=== PATIENT | female | born 1960 | race Two or more races ===

== ENCOUNTER 2017-04-20 10:20 | Emergency (ER) | payer SELFPAY ==
[~2017-04-20] VITALS: Ht 157.5 cm; Wt 100.7 kg
[2017-04-20 10:34] VITALS: BP 125/82
[2017-04-20] MEDS ORDERED: HYDROcodone-ACET 5/325MG TAB PO ONE (11:00)
== END 2017-04-20 11:38 | disposition home or self-care (01) ==
LOC: ER 10:20
DX: S80.02XA Contusion of left knee, initial encounter (principal); R07.89 Other chest pain; V43.52XA Car driver injured in collision with other type car in traffic accident, initial encounter; Y93.89 Activity, other specified; Y92.89 Other specified places as the place of occurrence of the external cause; Y99.8 Other external cause status
CPT/HCPCS: 71101; 73560

== ENCOUNTER 2021-01-17 10:52 | Emergency (ER) | payer OTHER ==
[~2021-01-17] VITALS: Ht 157.5 cm; Wt 90.7 kg
[2021-01-17 11:27] LABS: Basophils # (auto) 0 10 ^3/uL (0-0.2); Hematocrit 22.3 % (36.0-46.0); Mean Corpuscular Hgb Conc. 28.5 g/dL (32.0-36.0); White Blood Cell 3.8 10^3/uL (4.4-10.8)
[2021-01-17 11:29] LABS: Basophils % (auto) 1.3 % (0.0-2.0); Eosinophils # (auto) 0 10 ^3/uL (0-0.8); Eosinophils % (auto) 1.3 % (0.0-7.0); Lymphocytes # (auto) 1.1 10 ^3/uL (0.4-5.4); Lymphocytes % (auto) 29.7 % (10.0-50.0); Mean Corpuscular Hemoglobin 15.4 pg (28.0-32.0); Mean Corpuscular Volume 54.1 fL (80.0-100.0); Monocytes # (auto) 0.3 10 ^3/uL (0-1.3); Monocytes % (auto) 7.1 % (0.0-12.0); Neutrophils # (auto) 2.3 10 ^3/uL (1.6-8.6); Neutrophils % (auto) 60.6 % (37.0-80.0); Nucleated Red Blood Cells % 0.2 %; Platelet Count (auto) 348 10^3/uL (140-450); Red Blood Cells 4.12 10^6/uL (4.0-5.20)
[2021-01-17 11:47] LABS: Albumin 3.7 g/dL (3.4-5.0); Anion Gap 8 (5-15); Blood Urea Nitrogen 10 mg/dL (7-18); Calcium 8.4 mg/dL (8.5-10.1); Carbon Dioxide 22 mmol/L (21-32); Chloride 110 mmol/L (98-107); Glucose 100 mg/dL (74-106); Potassium 3.6 mmol/L (3.5-5.1); Sodium 140 mmol/L (136-145)
[2021-01-17 11:52] LABS: Alanine Aminotransferase 26 U/L (13-56); Alkaline Phosphatase 202 U/L (45-117); Aspartate Aminotransferase 21 U/L (15-37); BUN/Creatinine Ratio 15.2; Bilirubin, Total 0.4 mg/dL (0.2-1.0); GFR African American 117 mL/min; GFR Non-African American 97 mL/min; Total Protein 7.1 g/dL (6.4-8.2)
[2021-01-17 11:54] LABS: Hemoglobin 6.4 g/dL (12.2-16.2); Red Cell Distribution Width 22.3 % (11.8-14.3)
[2021-01-17 11:59] LABS: INR 0.95 (0.9-1.15)
[2021-01-17 12:45] LABS: Urine Bacteria NONE SEEN /hpf (None Seen); Urine Blood Negative /uL (Negative); Urine Specific Gravity 1.006 (1.001-1.035); Urine WBC 5 /hpf (0 - 5)
[2021-01-17 15:45] VITALS: BP 135/75
== END 2021-01-17 16:02 | disposition home or self-care (01) ==
LOC: ER 10:52
DX: D64.9 Anemia, unspecified (principal); R53.83 Other fatigue; Z87.891 Personal history of nicotine dependence
CPT/HCPCS: 36415; 36430; 80053; 81001; 84484; 85025; 85610; 85730; 86850; 86900; 86901; 86920; 93005; 99285; P9016